=== PATIENT | male | born 1995 | race Caucasian/White ===

== ENCOUNTER 2018-05-13 09:19 | Emergency (ER) | payer OTHER ==
[2018-05-13 09:27] VITALS: BP 125/78
--- NOTE | 2018-05-13 09:35 | EDPHY ---
H & P Time Seen by Provider: 05/13/18 09:28 HPI/ROS: CHIEF COMPLAINT: Right forehead laceration HISTORY OF PRESENT ILLNESS: 22-year-old male otherwise healthy no anticoagulant use arrives via private vehicle complaining of acute right forehead injury after he is laying in bed, has remained opened a window, a small potted plant fell onto his forehead. No loss of consciousness. No amnesia. No alcohol or drug use . Occurred shortly prior to arrival. Complaining of nonprogressive non thunderclap headache. No nausea or vomiting. No visual acuity changes. No midline C-spine pain. No gait instability. Tetanus up-to-date PRIMARY CARE PROVIDER: REVIEW OF SYSTEMS: 10 systems reviewed and negative with the exception of the elements mentioned in the history of present illness PAST MEDICAL/SURGICAL HISTORY: no anticoagulant use, no relevant medical/ surgical history SOCIAL HISTORY: denies alcohol use at time of incident PHYSICAL EXAM 1) GENERAL: Well-developed, well-nourished, alert and oriented. Appears to be in no acute distress. Answering questions appropriately. GCS 15 2) HEAD: Normocephalic, right frontal 1.5 cm laceration. Linear 3) HEENT: Pupils equal, round, reactive to light bilaterally. Negative Horners. Nasopharynx, oropharynx, clear. No deformity or angulation of nose. No septal hematoma. No rhinorrhea. No oral trauma. Ears bilaterally with normal tympanic membranes. No hemotympanum. No fluid or blood in the external auditory canal. No raccoon eyes. No Wadsworth sign. Teeth are normally aligned with no gross malocclusion, TMJ bilaterally nontender, facial bones nontender including the zygomatic arch, maxilla mandible. 4) NECK: No cervical collar is on. Posterior cervical spine is nontender, no stepoff, no effusion. Full range of motion which does not elicit any midline cervical spine pain, no posterior midline tenderness, no step-off. 5) LUNGS: Clear to auscultation bilaterally, no wheezes, no rhonchi, no retractions. No obvious signs of trauma. No chest wall pain. No flaring, no grunting. Moving symmetrically. No crepitus. 6) HEART: [Regular rate and rhythm, 7) ABDOMEN: No guarding, no rebound, no focal tenderness, no peritoneal signs, no signs of trauma, no ecchymosis 8) MUSCULOSKELETAL: Moving all extremities, no focal areas of tenderness, no obvious trauma. 9) BACK: No midline vertebral tenderness, no fluctuance, no step-off, no obvious trauma, no visual or palpable abnormality. 10) SKIN: No laceration. No abrasion 11) NEURO: Awake, alert, and oriented to person, place and time. Answers questions appropriately. There were no obvious focal neurologic abnormalities. No cerebellar dysfunction. Cranial nerves 2 through to 12 intact. Normal steady gait. Upper and lower extremities bilaterally with strength 5 / 5, reflexes 2+. DIFFERENTIAL DIAGNOSIS: Not necessarily in any particular order, my differential diagnosis includes, but is not limited to, concussion, skull fracture, intraparenchymal contusion, subarachnoid, subdural and epidural hematoma. The patient understands that this diagnosis is provisional and can never be 100% accurate. Smoking Status: Current some day smoker Constitutional: Initial Vital Signs Temperature (C) 36.7 C 05/13/18 09:22 Heart Rate 78 05/13/18 09:22 Respiratory Rate 16 05/13/18 09:22 Blood Pressure 125/78 H 05/13/18 09:22 O2 Sat (%) 98 05/13/18 09:22 O2 Delivery Mode Room Air Allergies/Adverse Reactions: No Known Allergies Allergy (Unverified 05/13/18 09:24) Home Medications: Medication Instructions Recorded MINOCYCLINE HCL 05/13/18 MDM/Departure - MDM Procedures: Procedure: Laceration repair with tissue adhesive Verbal consent was obtained from the patient. The 1.5 cm laceration on the right frontal region. The wound was scrubbed and explored to its base with a gloved finger. No foreign body seen, no foreign bodies palpated. There were no deep structures involved. The wound was repaired with tissue adhesive. The procedure was performed by myself. Patient has been informed that scarring will occur, although efforts have been made to minimize this. ED Course/Re-evaluation: Negative [place] head and C-spine decision-making tools. No indication for imaging at this time. Nonetheless this was offered to the patient he is in agreement he does not feel is indicated. Wound has been primarily closed in the ER after irrigation, see procedure note. Given my usual and customary head injury precautions and instructions. Care of patient under supervision of secondary supervising physician Dr Mantilla . - Depart Disposition: Home, Routine, Self-Care Clinical Impression: Head injury due to trauma Qualifiers: Encounter type: initial encounter Qualified Code(s): S09.90XA - Unspecified injury of head, initial encounter Laceration of forehead Qualifiers: Encounter type: initial encounter Qualified Code(s): S01.81XA - Laceration without foreign body of other part of head, initial encounter Condition: Good Instructions: Laceration (ED) Additional Instructions: ALTHOUGH THERE IS NO EVIDENCE OF SERIOUS HEAD INJURY AT THIS TIME, DELAYED SIGNS CAN APPEAR 24 TO 48 HOURS AFTER INJURY. PLEASE RETURN TO THE EMERGENCY DEPARTMENT (ED) IMMEDIATELY IF YOU HAVE INCREASED HEADACHE, PERSISTENT HEADACHE , VOMITING, WEAKNESS, CONFUSION OR VISUAL PROBLEMS. WE RECOMMEND THAT YOU DO NOT RESUME CONTACT SPORTS OR ACTIVITIES THAT TAKE COORDINATION OR BALANCE SUCH SKIING OR RIDING A BICYCLE UNTIL CLEARED TO DO SO BY YOUR DOCTOR OR BY A NEUROLOGIST. Referrals: Ann Whatley MD [Medical Doctor] - 1-2 days without fail
[2018-05-13] MEDS ORDERED: SKIN ADHESIVE (DERMABOND) 1 EACH TP ONE (09:46)
== END 2018-05-13 10:16 | disposition home or self-care (01) ==
PROC: 0HQ1XZZ Repair Face Skin, External Approach (ICD-10-PCS; principal; 2018-05-13)
DX: S01.81XA Laceration without foreign body of other part of head, initial encounter (principal); W20.8XXA Other cause of strike by thrown, projected or falling object, initial encounter; Y92.9 Unspecified place or not applicable; Y93.9 Activity, unspecified; Y99.9 Unspecified external cause status